=== PATIENT | female | born 1930 | race African-American/Black ===

== ENCOUNTER 2017-04-07 11:36 | Day surgery (SDC) | payer MEDICARE, BC ==
[2017-04-07] MEDS ORDERED: diphenhydrAMINE 25 MG CAP PO SCH (12:00)
[2017-04-07] MEDS ORDERED: Acetaminophen 500 MG TAB PO SCH (12:00)
[2017-04-07] MEDS ORDERED: Sodium Chloride 0.9% 20 ML ONE (18:13)
[2017-04-07 18:31] VITALS: BP 147/69; TEMP 98.2
[2017-04-07 19:16] LABS: #Eosinphils 0.1 thou/uL (0.0-0.7); #Lymphocytes 1.2 thou/uL (1.20-3.40); #Monocytes 0.5 thou/uL (0.11-0.59); %Basophils 0.4 % (0.0-1.0); %Eosinophils 2.6 % (0.0-10.0); %Lymphocytes 31.2 % (21.0-51.0); %Monocytes 12.2 % (0.0-10.0); Hematocrit 34.2 % (36.0-47.0); Mean Platelet Volume 6.8 fL (7.4-10.4); Red Blood Cell (RBC) Count 3.58 mill/uL (4.20-5.40); White Blood Cell (WBC) Count 3.8 thou/uL (4.8-10.8)
== END 2017-04-07 19:13 | disposition home or self-care (01) ==
LOC: ONC/OP 11:36
PROVIDERS: ATTEND Internal Medicine Medical Oncology
PROC: 30233N1 Transfusion of Nonautologous Red Blood Cells into Peripheral Vein, Percutaneous Approach (ICD-10-PCS; principal; 2017-04-07)
DX: D64.9 Anemia, unspecified (principal); D69.59 Other secondary thrombocytopenia; E11.22 Type 2 diabetes mellitus with diabetic chronic kidney disease; I12.9 Hypertensive chronic kidney disease with stage 1 through stage 4 chronic kidney disease, or unspecified chronic kidney disease; N18.9 Chronic kidney disease, unspecified; J32.9 Chronic sinusitis, unspecified; G47.00 Insomnia, unspecified; E78.5 Hyperlipidemia, unspecified; F41.8 Other specified anxiety disorders; Z79.84 Long term (current) use of oral hypoglycemic drugs; Z79.82 Long term (current) use of aspirin; Z79.2 Long term (current) use of antibiotics; Z79.02 Long term (current) use of antithrombotics/antiplatelets; Z79.899 Other long term (current) drug therapy; Z88.6 Allergy status to analgesic agent; Z88.1 Allergy status to other antibiotic agents; Z88.5 Allergy status to narcotic agent; Z88.0 Allergy status to penicillin; Z90.49 Acquired absence of other specified parts of digestive tract; Z90.710 Acquired absence of both cervix and uterus; Z90.89 Acquired absence of other organs
CPT/HCPCS: 36415; 36430; 82728; 85025; 86850; 86900; 86901; A4216; P9016

== ENCOUNTER 2017-05-01 08:30 | Outpatient (CLI) | payer MEDICARE, BC ==
--- NOTE | 2017-05-01 10:35 | CT ---
CT ABDOMEN AND PELVIS WITH IV CONTRAST: Date: 05-01-17 History: GI bleed and abdominal pain. Patient has history of colon resection due to diverticulitis. T here also a history of hysterectomy. Comparison: 09-12-11 FINDINGS: Calcified granuloma is seen in the lingula. Minimal atelectasis is seen at each lung base. The liver, spleen, pancreas, bilateral adrenal glands, kidneys, and urinary bladder demonstrate a nor mal CT appearance. There is evidence of prior hysterectomy. There are post-surgical changes in the region of the rectosigmoid junction related to anastomosis in this region. The opacified small bowel is normal in appearance and normal in caliber. There is a focal area of thickening seen within the region of the pylorus of the stomach. While this could be related to peristalsis, focal thickening related to ulcer disease cannot be entirely exclude d versus other etiologies. Vascular calcifications are seen in the abdominal aorta and in the iliac arteries. There is no free fluid, fluid collection, or lymphadenopathy seen in the abdomen or pelvis. Previousl y noted dilated loops of small bowel seen on the prior exam are no longer visualized on this study. IMPRESSION: 1. Focal area of thickening involving the region of the pylorus of the stomach. This could be related to ulcer disease. Endoscopy may be helpful for further evaluation. 2. Post-surgical changes in the region of the rectosigmoid colon. 3. Hysterectomy. 4. Dense atherosclerotic vascular calcifications. POS: [facility]
[2017-05-01] MEDS ORDERED: Iopamidol 370 76% 100 ML VIAL ONE (14:02)
== END 2017-05-01 08:31 | disposition home or self-care (01) ==
LOC: CT 08:30
PROVIDERS: ATTEND Nurse Practitioner Acute Care
DX: K92.2 Gastrointestinal hemorrhage, unspecified (principal); R10.9 Unspecified abdominal pain; N18.9 Chronic kidney disease, unspecified; D63.1 Anemia in chronic kidney disease; K31.89 Other diseases of stomach and duodenum; I70.90 Unspecified atherosclerosis; Z98.890 Other specified postprocedural states; Z90.710 Acquired absence of both cervix and uterus
CPT/HCPCS: 74177

== ENCOUNTER 2018-05-18 11:13 | Emergency (ER) | payer MEDICARE, BC ==
[2018-05-18 14:01] LABS: ALT (SGPT) 16 U/L (8-55); AST (SGOT) 15 U/L (5-34); Albumin 3.9 g/dL (3.4-4.8); Alkaline Phosphatase 60 U/L (40-150); Anion Gap 15 mmol/L (10-20); BUN (Urea Nitrogen) 13 mg/dL (9.8-20.1); Bilirubin, Total 0.4 mg/dL (0.2-1.2); Calc. Creatinine Clearance 0 mL/min (70-130); Calcium 10.1 mg/dL (7.8-10.44); Carbon Dioxide 21 mmol/L (23-31); Chloride 108 mmol/L (98-107); Estimated GFR-MDRD 64; Globulin 3.2 g/dL (2.4-3.5); Glucose 114 mg/dL (83-110); Potassium 4.7 mmol/L (3.5-5.1); Protein, Total 7.1 g/dL (6.0-8.3); Sodium 139 mmol/L (136-145)
--- NOTE | 2018-05-18 14:41 | CT ---
NONCONTRAST CT HEAD: DATE: 05/18/2018. HISTORY: Multiple complaints. The patient has neck pain and ear pain as well as right-sided chest pain. Fac ial swelling. COMPARISON: None available. FINDINGS: There is decreased attenuation of the periventricular white matter which is nonspecific but likely re flective of chronic small-vessel ischemic changes. There is no evidence of an acute cortical infarct ion, hemorrhage, mass effect, or midline shift. There is mild cerebral volume loss. The ventricular system is normal in size, shape, and position. The visualized paranasal sinuses and mastoid air david ls are clear. The calvarial structures are intact. IMPRESSION: 1. No acute intracranial abnormality is demonstrated. 2. Prominent vascular calcifications in the carotid siphons and distal vertebral arteries. 3. Mild chronic small-vessel ischemic changes and cerebral volume loss. POS: [facility]
--- NOTE | 2018-05-18 14:59 | CT ---
NONCONTRAST CT FACIAL BONES: DATE: 05/18/2018. HISTORY: Right-sided neck pain and ear pain. Facial swelling. FINDINGS: There is no evidence of a fracture. The orbits have a normal and symmetric appearance bilaterally. There is a subcentimeter osseous density seen within the right frontal sinus which may represent a sm all osteoma. There is slight irregularity of the right medial orbital wall which is probably develop mental in origin versus a remote injury. There is trace mucosal thickening in each maxillary antrum. Prominent degenerative change is seen in the visualized upper cervical spine. Dense vascular calcifications are seen in the carotid siphons and involving the distal vertebral sean chester. IMPRESSION: 1. No evidence of a fracture. 2. No acute findings are seen. 3. Visualized mastoid air cells are clear. POS: [facility]
--- NOTE | 2018-05-18 15:11 | RAD ---
PORTABLE AP CHEST XRAY: DATE: 05/18/2018. History Chest pain. COMPARISON: 01/17/2017. FINDINGS: The cardiac silhouette is magnified by projection but stable in size. The pulmonary vasculature is w ithin normal limits. Lungs are clear. There has been no interval change compared to the prior exam. IMPRESSION: No acute cardiopulmonary process. POS: [facility]
[2018-05-18 16:11] LABS: #Eosinphils 0.1 thou/uL (0.0-0.7); #Lymphocytes 1.2 thou/uL (1.20-3.40); #Monocytes 0.2 thou/uL (0.11-0.59); #Neutrophils 1.5 thou/uL (1.40-6.50); %Basophils 0.4 % (0.0-1.0); %Eosinophils 4.2 % (0.0-10.0); %Lymphocytes 39.9 % (21.0-51.0); %Monocytes 6.8 % (0.0-10.0); %Neutrophils 48.7 % (42.0-75.0); Hemoglobin 10.5 g/dL (12.0-16.0); Mean Corpuscular HGB CONC 32.1 g/dL (32.0-36.0); Mean Corpuscular Hemoglobin 26.9 pg (27.0-31.0); Mean Corpuscular Volume 83.9 fL (78.0-98.0); Mean Platelet Volume 6.9 fL (7.4-10.4); Platelet Count 266 thou/uL (130-400); RBC Distribution Width 13.5 % (11.5-14.5)
== END 2018-05-18 16:41 | disposition home or self-care (01) ==
LOC: ERS 11:13
DX: J02.9 Acute pharyngitis, unspecified (principal); I10 Essential (primary) hypertension; E11.9 Type 2 diabetes mellitus without complications; F41.9 Anxiety disorder, unspecified; Z87.01 Personal history of pneumonia (recurrent); Z79.84 Long term (current) use of oral hypoglycemic drugs; Z79.82 Long term (current) use of aspirin; Z79.899 Other long term (current) drug therapy
CPT/HCPCS: 36415; 70450; 70486; 71045; 80053; 84484; 85025; 87081; 87430; 87804; 93005

== ENCOUNTER 2021-10-19 10:21 | Outpatient (CLI) | payer MEDICARE, BC | END 2021-10-19 10:22 | disposition home or self-care (01) | LOC: BICRAD 10:21 | PROVIDERS: ATTEND Specialist | DX: M25.511 Pain in right shoulder (principal) ==